=== PATIENT | male | born 2000 | race Caucasian/White ===

== ENCOUNTER 2024-01-31 23:34 | Emergency (ER) | payer BC, SELFPAY ==
[2024-01-31 23:50] VITALS: BP 166/92; PULSE 72; RESP 18; TEMP 36.4; O2SAT 95; BMI 32.3
[2024-02-01] VITALS (10 sets, daily range): BP systolic 120–126; BP diastolic 66–79; PULSE 63–80; O2SAT 93–97
--- NOTE | 2024-02-01 00:20 | ED_ITS ---
HPI - General Adult General Chief complaint: Chest Pain Stated complaint: chest pain Time Seen by Provider: 02/01/24 00:16 History of Present Illness HPI narrative: Ear pain 5 days ago. Has seasonal allergies. L arm tingling at 1400 today with increasing SOB since. Describes a rather stressful situation @ work 0. Consumed 1 whiskey sprite @ 1999. Chest pressure 6/10 midsternal radiating to across back of shoulders @ 2240 (tried 1 Tums w/o relief ) w/ developing nausea @ 2300. Chest pressure continues 3/10 w/ lightheadedness and SOB. 23-year-old man presenting to the emergency depart with concern of is chest pain. This mid afternoon noted some left arm tingling and started to feel some chest pressure and has been having increasing shortness of breath since. There was a rather stressful situation that occurred at work this evening. He did have whiskey drink to calm. Ended up having some increasing discomfort across his back and shoulders and nausea. Try to Tums. He still feeling little lightheaded and short of breath and this sternal pressure is still present. Has settled a great deal at this point. Does not usually struggle with heartburn. Related Data Home Medications ?Medication ?Instructions ?Recorded ?Confirmed cetirizine 10 mg tablet (Zyrtec) 10 mg PO QDAY PRN 08/05/22 08/05/22 Allergies Allergy/AdvReac Type Severity Reaction Status Date / Time avocado Allergy Intermediate Verified 08/05/22 10:41 Fish Containing Products Allergy Intermediate Verified 08/05/22 10:41 bananas Allergy Intermediate Uncoded 08/05/22 10:41 Review of Systems Status of ROS: Reports: 6 or more systems reviewed and unremarkable except as noted in History and below [facility] Social History Smoking Status: Never smoker service: No Exam Narrative: Exam Narrative: Pleasant. Mildly anxious. Seems little uncomfortable. Skin is warm and dry. No evidence of self-harm. Lungs are clear. Breathing easily. Heart in regular rate and rhythm without murmur rub or gallop. Mildly uncomfortable to palpation across the chest. Abdomen is soft and nontender. No facial swelling erythema. Speaking fluidly. Const: Vital Signs, click to edit/add: Vital Signs - 24 hr 01/31/24 23:50 02/01/24 00:15 02/01/24 00:17 Temperature 97.6 F Pulse Rate 77 76 Pulse Rate [Pulse Oximeter] 72 Respiratory Rate 18 Blood Pressure 120/79 Blood Pressure [Ri ght Upper Arm] 166/92 H Pulse Oximetry 95 97 97 Oxygen Delivery Me thod Room Air 02/01/24 00:30 02/01/24 00:36 02/01/24 01:00 Temperature Pulse Rate 77 79 67 Pulse Rate [Pulse Oximeter] Respiratory Rate Blood Pressure 126/66 Blood Pressure [Ri ght Upper Arm] Pulse Oximetry 96 95 93 Oxygen Delivery Me thod 02/01/24 01:02 02/01/24 01:30 02/01/24 01:32 Temperature Pulse Rate 74 70 73 Pulse Rate [Pulse Oximeter] Respiratory Rate Blood Pressure 125/70 126/76 Blood Pressure [Ri ght Upper Arm] Pulse Oximetry 96 94 97 Oxygen Delivery Me thod 02/01/24 02:00 02/01/24 02:02 Temperature Pulse Rate 63 80 Pulse Rate [Pulse Oximeter] Respiratory Rate Blood Pressure 123/72 Blood Pressure [Ri ght Upper Arm] Pulse Oximetry 94 94 Oxygen Delivery Me thod Documenting provider has reviewed patient's vital signs: yes Course Vital Signs Vital signs: Initial Vital Signs Temperature 97.6 F 01/31/24 23:50 Temperature Source Temporal Artery Scan 01/31/24 23:50 Pulse Rate 72 01/31/24 23:50 Pulse Rhythm Regular 01/31/24 23:50 Pulse Strength 3+ Normal 01/31/24 23:50 Respiratory Rate 18 01/31/24 23:50 Blood Pressure 166/92 H 01/31/24 23:50 Blood Pressure Mean 116 H 01/31/24 23:50 Blood Pressure Position Sitting 01/31/24 23:50 Pulse Oximetry 95 01/31/24 23:50 Oxygen Delivery Method Room Air 01/31/24 23:50 Vital Signs Temperature 97.6 F 01/31/24 23:50 Pulse Rate 72 01/31/24 23:50 Respiratory Rate 18 01/31/24 23:50 Blood Pressure 166/92 H 01/31/24 23:50 Pulse Oximetry 95 01/31/24 23:50 Oxygen Delivery Method Room Air 01/31/24 23:50 Temperature 97.6 F 01/31/24 23:50 Pulse Rate 80 02/01/24 02:02 Respiratory Rate 18 01/31/24 23:50 Blood Pressure 123/72 02/01/24 02:02 Pulse Oximetry 94 02/01/24 02:02 Oxygen Delivery Method Room Air 01/31/24 23:50 Medications Administered Medications: Discontinued Medications Generic Name Dose Route Start Last Admin Trade Name Kit PRN Reason Stop Dose Admin Lorazepam 1 mg 02/01/24 01:48 02/01/24 01:55 Lorazepam 1 Mg Tablet PO 02/01/24 01:49 1 mg ONCE ONE Administration Medical Decision Making MDM Narrative Medical decision making narrative: Given references to anxiety in considering the trying a whiskey to help, I would think that anxiety has played a role in this presentation here this evening. Can evaluate though per concerns for cardiac etiology or other ischemic event or tachyarrhythmia. Will monitor on emergency department. He would appreciate something for anxiety -- ordered for lorazepam. Labs are reassuring though with elevated transaminases not inconsistent with alcohol ingestion. No events on monitor. Is more relaxed on reassessment. Blood pressures improved. Feels can safely return home See patient discharge plan for further discussion Medical Records Medical records reviewed: Yes I reviewed the patient's medical records (No prior for review) Lab Data Lab results reviewed: Yes I reviewed the patient's lab results Labs: Lab Results 02/01/24 Range/Units 00:30 Hgb 14.6 (13.5-17.5) gm/dL Sodium 139 (135-149) mmol/L Potassium 3.4 L (3.6-5.1) mmol/L Chloride 104 (96-114) mmol/L Carbon Dioxide 27 (20-32) mmol/L Anion Gap 8 (7-15) mEq/L BUN 10 (5-24) mg/dL Creatinine 0.7 (0.5-1.5) mg/dL Estimated Creat Clear 145.58 Estimated GFR 131 ml/min Glucose 137 H (60-115) mg/dL Calcium 9.5 (8.4-10.6) mg/dL Total Bilirubin 0.7 (0.1-1.5) mg/dL Direct Bilirubin 0.4 (0.0-0.5) mg/dL AST 48 H (12-35) U/L ALT 105 H (4-50) U/L Alkaline Phosphatase 54 (40-150) U/L Troponin I < 0.01 L (0.01-0.04) ng/mL NT-Pro-B Natriuret Pep < 20 pg/mL Total Protein 7.1 (6.0-8.3) g/dL Albumin 4.9 (3.3-5.0) g/dL POC Troponin I 0.01 (0.01-0.04) ng/ml ECG Data Attestation: I personally reviewed and interpreted this ECG as follows: (Normal sinus rhythm. Rate of 66) Discharge Plan Discharge Clinical Impression: Atypical chest pain, Elevated transaminase level Patient Disposition: Home w/ Parent or Adult Condition: Improved Additional Instructions: I am happy you are feeling better. It would appear that anxiety contributed somewhat to your symptoms here today. Your elevated liver enzymes are likely related to the alcohol but consider getting them rechecked on follow-up visit in clinic. Prescriptions: No Action cetirizine [Zyrtec] 10 mg tablet 10 mg PO QDAY PRN Follow Up/Referrals: Sim Bragg MD [Staff Physician] - Stand Alone Forms: Q Design Info Instructions
[2024-02-01 00:32] LABS: Troponin, Point-of-Care* 0.01 ng/ml (0.01-0.04)
[2024-02-01 00:48] LABS: Hemoglobin* 14.6 gm/dL (13.5-17.5)
[2024-02-01 00:55] LABS: Albumin* 4.9 g/dL (3.3-5.0); Chloride* 104 mmol/L (96-114)
[2024-02-01 00:56] LABS: Potassium* 3.4 mmol/L (3.6-5.1); Sodium* 139 mmol/L (135-149)
[2024-02-01 00:58] LABS: Anion Gap 8 mEq/L (7-15); Carbon Dioxide* 27 mmol/L (20-32); Creatinine* 0.7 mg/dL (0.5-1.5); Est. Creatinine Clearance* 145.58; Estimated Glomerular Filt Rate 131 ml/min
[2024-02-01 00:59] LABS: Alanine Aminotransferase* 105 U/L (4-50); Alkaline Phosphatase* 54 U/L (40-150); Aspartate Amino Transferase* 48 U/L (12-35); Bilirubin Direct* 0.4 mg/dL (0.0-0.5); Bilirubin Total* 0.7 mg/dL (0.1-1.5); Blood Urea Nitrogen* 10 mg/dL (5-24); Calcium* 9.5 mg/dL (8.4-10.6); Glucose* 137 mg/dL (60-115); Total Protein* 7.1 g/dL (6.0-8.3)
[2024-02-01 01:20] LABS: NT Pro B Type NatriureticPept* < 20 pg/mL; Troponin I* < 0.01 ng/mL (0.01-0.04)
[2024-02-01] MEDS: LORazepam 1 MG TABLET PO (01:55)
== END 2024-02-01 02:53 | disposition home or self-care (01) ==
PROVIDERS: Emergency Provider Family Medicine
DX: R07.9 Chest pain, unspecified (principal); R74.01 Elevation of levels of liver transaminase levels
CPT/HCPCS: 36415; 80048; 80076; 83880; 84484; 85018; 93005; 99284; A9270